=== PATIENT | male | born 1960 | race Caucasian/White ===

== ENCOUNTER → 2017-09-20 | Outpatient (CLI) | payer OTHER ==
[~2017-09-20] MED LIST: ACET-1222 PO; ADAL40KI SC; IBUP-1050 PO
[2017-09-20 12:16] LABS: BASO % 0.3 %; BASO ABS # 0.02 K/uL (0-0.2); EOS % 3.9 %; EOS ABS # 0.23 K/uL (0-0.5); HEMATOCRIT 42.4 % (42-52); HEMOGLOBIN 14.3 g/dL (14.0-18.0); IG# 0.04 K/uL (0.00-0.02); LYMPH % 29.8 %; LYMPH ABS # 1.74 K/uL (1.2-3.4); MEAN CELL VOLUME 89.6 fL (80-100); MEAN CORPUSCULAR HEMOGLOBIN 30.2 pg (25-34); MEAN CORPUSCULAR HGB CONC 33.7 g/dl (32-36); MEAN PLATELET VOLUME 10.4 fL (7.4-10.4); MONO % 8.7 %; MONO ABS # 0.51 K/uL (0.11-0.59); NEUT % 56.6 %; PLATELET COUNT 214 K/uL (130-400); RED CELL DISTRIBUTION WIDTH CV 13.5 % (11.5-14.5); RED CELL DISTRIBUTION WIDTH SD 44.3 fL (36.4-46.3); WHITE BLOOD COUNT 5.84 K/uL (4.8-10.8)
[2017-09-20 12:37] LABS: BLOOD UREA NITROGEN 25 mg/dl (7-18); CALCIUM 9.1 mg/dl (8.5-10.1); CARBON DIOXIDE 29 mmol/L (21-32); CREATININE 1.17 mg/dl (0.60-1.40); GLUCOSE 97 mg/dl (70-99); POTASSIUM 4.6 mmol/L (3.5-5.1); SODIUM 138 mmol/L (136-145)
== END | disposition home or self-care (01) ==
LOC: C.CPL 09:32
PROVIDERS: ATTEND Orthopaedic Surgery
DX: Z01.818 Encounter for other preprocedural examination (principal); M75.120 Complete rotator cuff tear or rupture of unspecified shoulder, not specified as traumatic

== ENCOUNTER → 2017-09-29 | Day surgery (SDC) | payer OTHER ==
[2017-09-21 13:50] VITALS: Ht 190.5 cm; Wt 129.6 kg
[~2017-09-29] VITALS: Ht 190.5 cm; Wt 129.6 kg
[~2017-09-29] MED LIST changes: +ATROPINE SULFATE 0.1 MG/ML 5ML SYR IV PRN; +BUPIVACAINE 0.25% 30 ML VIAL ONE; +CEFAZOLIN 3000MG IV PUSH 22.5 ML IV SCH; +DEXAMETHASONE SOD INJ 4 MG/ML VIAL ONE; +EpHEDrine SULFATE INJ 50 MG/ML AMP IV PRN; +EpINEphrine HCL INJ 1 MG/ML 1ML SYRINGE ONE; +EpINEphrine INJ 1MG/ML AMP 1 MG/ML AMP ONE; +FENTANYL CITRATE INJ 50 MCG/1 ML 2 ML VIAL IV PRN; +FENTANYL CITRATE INJ 50 MCG/1 ML 2 ML VIAL ONE; +GLYCOPYRROLATE INJ 0.2 MG/ML VIAL ONE; +KETO10TA PO; +KETOROLAC TROMETHAMINE 30 MG/ML VIAL IV. PRN; +LACTATED RINGER'S 1000ML 1,000 ML IV SCH; +LIDOCAINE HCL 2% 2 ML VIAL (20MG/ML) ONE; +MIDAZOLAM HCL 1 MG/ML 2ML VIAL ONE; +NEOSTIGMINE METHYLSULFATE 5 MG/5 ML SYR ONE; +ONDANSETRON INJ 2 MG/ML 2 ML VIAL IV PRN; +ONDANSETRON INJ 2 MG/ML 2 ML VIAL ONE; +OXYC-57 PO; +OXYCODONE/ACETAMINOPHEN 5-325 TAB PO PRN; +PROPOFOL IV EMULSION 10 MG/ML 20 ML VIAL ONE; +ROCURONIUM BROMIDE 10 MG/ML 5 ML VIAL ONE; +ROPIVACAINE 0.5% 5 MG/ML 30 ML VIAL ONE; +SODIUM CHLORIDE 0.9% 1000ML 1,000 ML IV SCH
--- NOTE | 2017-09-29 09:36 | History & Physical Bridge - [place] ---
H&P Re-Evaluation Bridge Note: I have examined the patient, reviewed the History & Physical and in the interval since the performance of the History & Physical I have noted the following changes of clinical significance: No changes noted
--- NOTE | 2017-09-29 11:53 | [facility] Post Operative Brief Note ---
Immediate Operative Summary Operative Date Sep 29, 2017. Pre-Operative Diagnosis Medium rotator cuff tear Right shoulder Post-Operative Diagnosis Same as pre-op Procedure(s) Performed Right Shoulder Arthroscopy With Medium Rotator Cuff Repair Surgeon Singe Winder Surgeon(s) Stewart KIRAN Estimated Blood Loss 5ML Findings Consistent with Post-Op Diagnosis Specimens None Anesthesia Type General Regional
--- NOTE | 2017-09-29 12:10 | Discharge Instructions-SurgCtr ---
Discharge Instructions Date of Service Sep 29, 2017. Visit Reason for Visit: Right Shoulder Full Thickness Rotator Cuff Tear Discharge Discharge Diagnosis / Problem: SAME ABOVE Discharge Goals Goal(s): Decrease discomfort, Improve function Medications Stopped Medications Name(s): Ibuprofen Last dose approx 1 week ago Restart Stopped Medication(s): MAY RESTART WHEN FINISHED WITH TORADOL TAKE TORADOL EVERY 8 HOURS WITH FOOD UNTIL FINISHED Activity Recommendations Activity Limitations: as noted below Lifting Limitations: until after follow-up appointment Exercise/Sports Limitations: until after follow-up appointment Shower/Bathe: tomorrow Anesthesia . Post Anesthesia Instructions: If you have had General Anesthesia or IV Sedation: * Do not drive today. * Resume driving when surgeon permits. * Do not make important decisions or sign legal documents today. * Call surgeon for: 1. Temperature elevations greater than 101 degrees F. 2. Uncontrollable pain. 3. Excessive bleeding. 4. Persistent nausea and vomiting. 5. Medication intolerance (nausea, vomiting or rash). * For nausea and vomiting use only clear liquids such as: tea, soda, bouillon until nausea subsides, then gradually increase diet as tolerated. * If you have any concerns or questions, call your surgeon's office. If physician is unavailable and it is an emergency, call 911 or go to the nearest emergency room. . Instructions / Follow-Up Instructions / Follow-Up MEDICATIONS: * Resume previous medications unless instructed otherwise by your surgeon. * Always take pain medication on a full stomach or with food to avoid upset stomach. * Do not drink alcohol or drive while taking narcotics. * Ibuprofen or Tylenol may be taken if narcotic not needed. SPECIAL CARE INSTRUCTIONS: __ None _X_ Keep extremity elevated and iced x 48 hours; apply ice 20-30 minutes 8-10 times/day. May remove at night. __ Sling __24 hrs/day __ Remove at night _X_ Shoulder Immobilizer (MAY REMOVE AFTER 48 HOURS ONLY TO SHOWER AND FOR THERAPY) _X_ 24 hrs/day __ Remove at night _X_ Dressing __ Maintain until seen in office, may shower with plastic over site _X_ Remove dressings in 24-48 hours and then may shower _X_ Cover incisions with band-aids after showering __ Do not remove steri-strips Call physician if chills or temperature rises above 102 degrees or pain unrelieved by prescribed pain medications at . . Diet Recommendations Home Diet: no limitations Fluid Restriction: None Procedures Procedures Performed: Right Shoulder Arthroscopy With Medium Rotator Cuff Repair Pending Studies Studies pending at discharge: no Work Instructions Return To Work: after follow-up Lifting Limitations: NO LIFTING WITH RIGHT ARM Medical Emergencies . Who to Call and When: Medical Emergencies: If at any time you feel your situation is an emergency, please call 911 immediately. . Non-Emergent Contact Non-Emergency issues call your: Surgeon Call Non-Emergent contact if: your pain is not controlled, wound has increased drainage, wound has increased redness . . "Provider Documentation" section prepared by Burke Hadley. .
--- NOTE | 2017-09-29 12:35 | OPERATIVE REPORT ---
DATE OF OPERATION: 09/29/2017 PREOPERATIVE DIAGNOSIS: Medium-sized right rotator cuff tear. POSTOPERATIVE DIAGNOSIS: Medium-sized right rotator cuff tear. PROCEDURE: Right shoulder diagnostic arthroscopy with limited debridement and medium rotator cuff repair. SURGEON: Dr. Michelet Hoffman. [employer] SAL[employer] REPRESENTATIVE: Burke Hadley PA-C, whose assistance was necessary for positioning the arm and help with instrumentation. ANESTHESIA: General with a right interscalene nerve block. COMPLICATIONS: None. CONDITION: Stable to PACU. 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 In early July, he was reaching away from his body and felt a pop in his shoulder. MRI and clinical examination were diagnostic for medium-sized rotator cuff tear. After failing conservative treatment, he elected to undergo arthroscopy. DESCRIPTION OF PROCEDURE: On 09/29/2017, he arrived at [facility] for the above procedure. He was seen in the preoperative holding area and the operative extremity was identified and signed. He was given a preoperative antibiotic and a right interscalene nerve block. He was taken back to the operating room, laid on table in supine position and put under general anesthesia. He was put into the beachchair position. The right shoulder was prepped and draped in sterile fashion. Time-out was done. The patient's operative extremity was properly identified. A scope was introduced in the posterior portal. Diagnostic arthroscopy showed some grade 2 chondral changes on the glenoid. No chondral changes on the humeral head. The biceps tendon was intact and went through a normal size biceps luis miguel mechanism. The subscap was intact. There was a tear of the entire supraspinatus, infraspinatus and teres minor were intact. An anterior portal was made. A shaver was used to do a limited debridement of the intraarticular structures. The biceps tendon was pulled into the joint and no evidence of pathology. The scope was put into the subacromial space. A lateral portal was made. A shaver was used to do a complete subacromial and subdeltoid bursectomy. An ablator was used to tease some of the coracoacromial ligament off the undersurface of the acromion and acromioplasty was not performed. An additional anterolateral portal was made. Anabela cannulas were placed in each lateral portals. The rotator cuff tear was identified. There was a crescent shaped medium-sized rotator cuff tear. The greater tuberosity was prepared with a ring curette and a microfracture. The rotator cuff was then fixed with an Arthrex SpeedBridge configuration using 4.75 mm BioComposite SwiveLock suture anchors and FiberTapes. This gave a nice knotless SpeedBridge repair. Multiple pictures were taken. The scope was then placed back into the glenohumeral joint and the articular margin of the rotator cuff had been restored. Pictures were taken. Arthroscopic instruments were removed from the shoulder. Portal sites were closed with 3-0 nylon. He was then placed in a soft dressing and abduction arm sling. He was then extubated, transferred to a litter and taken to postanesthesia care unit in stable condition. He tolerated the procedure well. I attest to the content of the Intraoperative Record and any orders documented therein. Any exception s are noted below.
[2017-09-29 12:44] VITALS: TEMP 36.4
[2017-09-29 13:20] VITALS: BP 154/79; PULSE 51; O2SAT 97
--- NOTE | 2017-09-29 13:47 | Anesthesia Progress Nt - [facility] ---
Anesthesia Post Op Note Date & Time Sep 29, 2017 at 13:46 Vital Signs Pain Intensity: 0 Vital Signs Past 12 Hours Date Time Temp Pulse Resp B/P (MAP) Pulse Ox O2 Delivery O2 Flow Rate FiO2 09/29/17 13:20 51 18 154/79 (104) 97 Room Air 09/29/17 12:44 36.4 50 16 139/72 (94) 99 Room Air 09/29/17 12:31 36.1 09/29/17 12:30 45 17 09/29/17 12:30 48 17 165/91 (108) 97 09/29/17 12:25 56 20 09/29/17 12:25 56 20 147/87 (104) 96 09/29/17 12:20 55 16 09/29/17 12:20 56 16 139/72 (107) 100 09/29/17 12:15 62 19 09/29/17 12:15 61 19 148/84 (96) 99 09/29/17 12:10 63 17 09/29/17 12:10 63 17 157/86 (115) 100 09/29/17 12:05 36.1 6 16 155/93 100 Diffusion Mask 6 09/29/17 10:45 0 09/29/17 10:40 55 6 143/89 98 09/29/17 10:40 59 09/29/17 10:37 172/100 09/29/17 10:35 54 09/29/17 10:35 57 0 96 09/29/17 10:30 55 0 96 09/29/17 10:30 55 09/29/17 10:25 54 09/29/17 10:25 55 0 97 09/29/17 10:20 54 0 97 09/29/17 10:20 55 09/29/17 10:15 54 0 98 09/29/17 10:15 52 09/29/17 10:10 49 09/29/17 10:10 54 0 96 09/29/17 09:16 36.5 55 16 190/107 (134) 98 Room Air Notes Mental Status: alert / awake / arousable, participated in evaluation Pt Amnestic to Procedure: Yes Nausea / Vomiting: adequately controlled Pain: adequately controlled Airway Patency, RR, SpO2: stable & adequate BP & HR: stable & adequate Hydration State: stable & adequate Anesthetic Complications: no major complications apparent Anesthetic Complications: Pt with mild pitosis of the right eye in recovery. No other complaints. Explained to patient that this is a known side effect of interscale block and that it should resolve without intervention. Patient instructed to call anesthesia department if it fails to resolve of if he has any questions or complaints. Block functioning well.
== END | disposition home or self-care (01) ==
LOC: X.SURG 08:19
PROVIDERS: ATTEND Orthopaedic Surgery
DX: M75.101 Unspecified rotator cuff tear or rupture of right shoulder, not specified as traumatic (principal); M06.9 Rheumatoid arthritis, unspecified; E66.9 Obesity, unspecified; Z68.35 Body mass index [BMI] 35.0-35.9, adult